=== PATIENT | female | born 1960 | race Caucasian/White ===

== ENCOUNTER 2019-08-30 10:02 | Observation (INO) ==
--- NOTE | 2019-08-30 10:30 | PROVIDER DOCUMENTATION ---
HPI-Neurological Disorder - General Chief Complaint: Stroke-Like Symptoms Stated Complaint: RIGHT SIDE FACIAL NUMBNESS Time Seen by Provider: 08/30/19 10:08 Source: patient, family Allergies/Adverse Reactions: Patient Allergies Allergy/AdvReac Type Severity Reaction Status Date / Time meperidine HCl * Allergy Intermediate PALPATIONS Verified 03/08/16 04:46 [From Demerol] cephalexin monohydrate * Allergy Mild SICK Verified 03/08/16 04:46 [From Keflex] Sulfa (Sulfonamide Allergy Mild SICK Verified 03/08/16 04:46 Antibiotics) ciprofloxacin AdvReac Mild NAUSEA Verified 03/08/16 09:12 hydrocodone AdvReac Mild NAUSEA Verified 03/08/16 04:46 Home Medications: Home Medication List Medication Instructions Recorded Confirmed Last Taken Type Alprazolam [Xanax] 1 mg PO TID 07/27/13 05/27/19 05/27/19 History Citalopram [Celexa] 60 mg PO QPM 07/27/13 05/27/19 05/27/19 History Diltiazem C.d. [Cardizem Cd] 240 mg PO 1500 07/27/13 05/27/19 05/27/19 History Omeprazole [Prilosec] 40 mg PO QAM 07/27/13 05/27/19 05/27/19 History L.acidoph,Paracasei, B.lactis 1 ea PO DAILY 05/27/19 05/27/19 05/27/19 History [Probiotic] - History of Present Illness-Neuro Nature of Presenting Problem: 59 YOF WITH PMH OF HTN, ANXIETY PRESENTS WITH C/O FACIAL DROOP, SLURRED SPEECH AND R SIDE NUMBNESS THAT WAS NOTED ON WAKING THIS AM AT 0830 (APROX). SHE REPORTS ONE WEEK AGO SHE HAS HAD NUMBNESS IN HER R LEG BUT ATTRIBUTED IT TO "STEPPING ON A CORD". SHE DENIES CP, SOB, HEAD INJURY, FALL, N/V/D. REPORTS SHE DOES NOT FEEL WELL IN GENERAL. Severity: reports: moderate Onset/Duration: reports: other (NOTED SLURRED SPEECH R FACIAL DROOP AND WEAKNESS UPON WAKING THIS AM. REPORTS R LEG HAS BEEN "NUMB" FOR A WEEK) Timing: reports: still present Context: reports: impaired speech, paresthesia, facial droop Character of Altered Mental Status: reports: N/A Any recent trauma/injury?: reports: none Character of Deficits: reports: new weakness, altered sensation, impaired speech New weakness or altered sensation location:: reports: RUE, RLE, right facial Cognitive Baseline: alert, oriented x3 Gait Baseline: uses a cane Associated Symptoms: reports: slurred speech Similar Symptoms Previously?: No Recently seen or treated by another doctor?: No Review of Systems - Adult - REVIEW OF SYSTEMS - ADULT Constitutional: reports: no symptoms reported. denies: see HPI, chills, fever, fatique, night sweats, weight gain, weight loss, other Eyes: reports: no symptoms reported. denies: see HPI, discharge, dry eyes, decreased vision, blurred vision, double vision, eye pain, redness, other Ears, Nose, Mouth & Throat: reports: no symptoms reported. denies: see HPI, ear discharge, ear pain, hearing loss, tinnitus, epistaxis, sinus problem, nose pain, loose teeth, mouth/dental pain, mouth swelling, hoarseness, throat pain, throat swelling, other Cardiovascular: reports: no symptoms reported. denies: see HPI, chest pain, edema, heart murmur, irregular heart rate, orthopnea, palpitations, poor circulation, PND, syncope, other Respiratory: reports: no symptoms reported. denies: see HPI, chronic cough, cough, dyspnea on exertion, excessive sputum production, hemoptysis, pleurisy, shortness of breath, wheezing, other Gastrointestinal: reports: no symptoms reported. denies: see HPI, abdominal pain, hematemesis, constipation, diarrhea, difficulty swallowing, frequent heartburn, nausea, poor appetite, rectal bleeding, vomiting, other Genitourinary: reports: no symptoms reported. denies: see HPI, dysuria, discharge, frequency, flank pain, frequent UTI's, hematuria, hesitency, incontinence, urinary retention, urgency, other Musculoskeletal: reports: see HPI. denies: no symptoms reported, bone pain, back pain, frequent leg cramps, joint pain, joint swelling, muscle aches, muscle weakness, neck pain, other Integumentary: reports: no symptoms reported. denies: see HPI, hives, hair loss, itching, mole changes, nail changes, rash, skin sores/ulcer, skin thickening, other Neurological: reports: see HPI, numbness, paresthesia, slurred speech, other (FACIAL DROOP). denies: no symptoms reported, ataxia, dizziness/vertigo, headache/migraines, loss of balance, seizure, syncope, tremors Psychiatric: reports: no symptoms reported. denies: see HPI, anxiety, anti- depressant use, alcohol/drug dependence, depression, emotional problems, insomnia, panic attacks, suicidal thoughts, other Endocrine: reports: no symptoms reported. denies: see HPI, change in skin pigment, excessive sweating, goiter, cold intolerance, heat intolerance, increased hunger, increased thirst, polyuria, other Hematologic/Lymphatic: reports: no symptoms reported. denies: see HPI, blood clots, easy bruising, low blood count, lymphedema, prolonged bleeding, swollen lymph nodes, transfusions, other Allergic/Immunologic: reports: no symptoms reported. denies: see HPI, allergic reactions, allergic rhinitis, asthma, eczema, food allergy, frequent infections, hay fever, hives, positive PPD, urticaria, other Past History - Adult - PAST MEDICAL HISTORY-ADULT Review of Records: reports: Nursing Assessment Review, Social history reviewed & non-contributory. Major Childhood Illnesses: reports: denies history Cardiovascular: reports: HTN Respiratory: reports: denies history Gastrointestinal: reports: GERD Obstetrical/Gynecological: reports: denies history Genitourinary: reports: denies history Musculoskeletal: reports: denies history Neurological: reports: denies history Endocrine/Immune: reports: denies history Other Conditions: reports: denies history - PRIOR SURGERIES/PROCEDURES Surgical/Procedure History: reports: cholecystectomy, hysterectomy - IMMUNIZATION STATUS Childhood Immunizations: See Nurse Assessment Flu Vaccine: See Nurse Assessment - FAMILY HISTORY Family History: reviewed, not pertinent Physical Exam- Neurological - Physical Exam-Neuro Initial Vital Signs Reviewed: Yes General Appearance: alert, no apparent distress Eye Exam: bilateral eye: normal inspection, PERRL, EOMI HENMT: normocephalic/atraumatic, moist mucous membranes, normal ENT inspection Head Injury: no evidence of injury Neck: non-tender, full range of motion, supple Respiratory: chest non-tender, lungs clear, normal breath sounds, no accessory muscle use Cardiovascular: normal peripheral pulses, regular rate, rhythm, no edema, no ga llop, no JVD, no murmur Abdominal Exam: normal bowel sounds, non tender, soft Lymphatic: no adenopathy Peripheral Pulses: radial (R): 2+, radial (L): 2+ Extremity: normal range of motion, non-tender. 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 negative: abnormal eye position, abnormal pupil position, tongue deviation to R, tongue deviation to L Coordination/Gait: normal finger to nose Motor/Sensory: no motor deficit (MOVES ALL EXT WELL), weak motor strength RUE, weak motor strength RLE Neurologic: facial droop, focal weakness (R SIDE). negative: aphasia Integumentary: normal color, normal turgor, warm/dry Psych/Mental Status: normal mood/affect, oriented x 3 - Glascow Coma Scale Best Eye Response: (4) open spontaneously Best Verbal Response: (5) oriented Best Motor Response: (6) obeys commands Progress - PLAN OF CARE/RESULTS Progress/Plan/Lab Results: Vital Signs - 8 hr 08/30/19 10:05 08/30/19 10:20 08/30/19 10:56 Temperature 98.1 F Pulse Rate 79 73 60 Respiratory Rate 18 21 18 Blood Pressure 218/112 151/82 137/89 O2 Sat by Pulse Oximetry 95 97 95 08/30/19 11:15 Temperature Pulse Rate 59 L Respiratory Rate 17 Blood Pressure 139/89 O2 Sat by Pulse Oximetry 94 L Laboratory Results - last 24 hr 08/30/19 08/30/19 08/30/19 10:27 10:27 10:27 WBC 5.30 RBC 4.90 Hgb 12.9 Hct 41.4 MCV 84.5 MCH 26.3 L MCHC 31.2 L RDW Std Deviation 16.6 H Plt Count 222 MPV 10.2 Immature Gran % (Auto) 0.0 Neut % (Auto) 46.4 Lymph % (Auto) 41.7 [place] % (Auto) 9.2 Eos % (Auto) 2.1 Baso % (Auto) 0.6 Immature Gran # (Auto) 0.00 Neut # (Auto) 2.46 Lymph # (Auto) 2.21 [place] # (Auto) 0.49 Eos # (Auto) 0.11 Baso # (Auto) 0.03 PT INR PTT (Actin FS) Sodium 140 Potassium 4.3 Chloride 105 Carbon Dioxide 22 L Anion Gap 13 BUN 14 Creatinine 0.7 Estimated GFR/1.73 m2 > 60 BUN/Creatinine Ratio 20 Glucose 93 POC Glucose Calculated Osmolality 280 Calcium 9.6 Total Bilirubin 0.40 AST 48 H ALT 42 H Alkaline Phosphatase 85 Troponin T < 0.010 Total Protein 7.6 Albumin 4.8 Globulin 3.0 Albumin/Globulin Ratio 2.0 TSH Free T4 08/30/19 08/30/19 08/30/19 10:27 10:27 10:29 WBC RBC Hgb Hct MCV MCH MCHC RDW Std Deviation Plt Count MPV Immature Gran % (Auto) Neut % (Auto) Lymph % (Auto) [place] % (Auto) Eos % (Auto) Baso % (Auto) Immature Gran # (Auto) Neut # (Auto) Lymph # (Auto) [place] # (Auto) Eos # (Auto) Baso # (Auto) PT 12.4 INR 0.88 PTT (Actin FS) 35.4 Sodium Potassium Chloride Carbon Dioxide Anion Gap BUN Creatinine Estimated GFR/1.73 m2 BUN/Creatinine Ratio Glucose POC Glucose 85 Calculated Osmolality Calcium Total Bilirubin AST ALT Alkaline Phosphatase Troponin T Total Protein Albumin Globulin Albumin/Globulin Ratio TSH 2.31 Free T4 1.20 Orders Category Date Time Status Cardiac Monitoring DIRECTED Care 08/30/19 10:09 Active Finger Stick Blood Sugar (ED) DIRECTED Care 08/30/19 10:09 Active Oxygen Therapy- ED Nursing DIRECTED Care 08/30/19 10:09 Active Saline Loc NOW Care 08/30/19 10:09 Active CHEST-PORTABLE [RAD] Stat Exams 08/30/19 10:[address] HEAD W/O CONTRAST [CT] Stat Exams 08/30/19 10:08 Completed CBC WITH ELECTRONIC DIFF [HEME] Stat Lab 08/30/19 10:27 Completed COMPREHENSIVE METABOLIC PANEL [CHEM] Stat Lab 08/30/19 10:27 Completed FREE T4 Stat Lab 08/30/19 10:27 Completed PROTIME WITH INR [COAG] Stat Lab 08/30/19 10:27 Completed PTT [COAG] Stat Lab 08/30/19 10:27 Completed TROPONIN T Stat Lab 08/30/19 10:27 Completed TSH Stat Lab 08/30/19 10:27 Completed URINALYSIS W/POSS RFLX CULT [URINALYSIS] Stat Lab 08/30/19 10:33 Ordered URINE DRUG SCREEN PL Stat Lab 08/30/19 10:33 Ordered EKG [EKG] Stat Ther 08/30/19 10:09 Ordered D/W DR DURÁN DUE TO LAST KNOWN NORMAL 0230, AND SYMPTOMS UPON WAKING THE PATIENT IS NOT A TPA CANIDATE AND SHOULD BE ADMITTED HERE FOR WORKUP Result Diagrams: 08/30/19 10:27 08/30/19 10:27 - EKG 1 Time of EKG reading by physician:: 10:33 EKG Read and Signed by:: Familia Durán EKG Interpretation (*Must complete 3 of following elements*): Normal Rate: 66 Rhythm: NSR [place]: normal QRS: normal AR Interval: normal ST Wave: normal Prior EKG Comparison: unchanged from prior - XRAY 1 XRAY Study: Chest Impression: See EMR Report (EXAM: CHEST-PORTABLE HISTORY: stroke symtoms TECHNIQUE: Single view COMPARISON: 03/18/2016 FINDINGS: The lungs are well expanded. The heart is not enlarged. The vessels are not distended. There are no infiltrates. No effusion identified. IMPRESSION: Negative exam. W Electronically signed by Lance Mejia 08/30/2019 11:18 AM 08/30/19 1118 I nterpreting Physician: Lance Mejia MD Dictated Date/Time: 08/30/19 1118 cc: Rosemary Sotomayor; Francis Witt MD) - CT/MRI 1 CT Study: Head Impression: See EMR Report (EXAM: CT HEAD W/O CONTRAST HISTORY: R sided weakness TECHNIQUE: CT head without contrast COMPARISON: 03/16/2015 FINDINGS: No parenchymal hemorrhage. No epidural or subdural hematoma. No subarachnoid hemorrhage. No mass identified on this noncontrasted exam. No hydrocephalus. No sinus opacification. IMPRESSION: No hemorrhage. Negative brain CT without contrast. This exam was performed using automated exposure control, adjustment of mA or kV according to patient size, and/or use of iterative reconstruction technique. Electronically signed by Lance Mejia 08/30/2019 11:09 AM 08/30/19 1109 Interpreting Physician: Lance Mejia MD Dictated Date/Time: 08/30/19 1106 cc: Rosemary Sotomayor; Francis Witt MD) - CONSULTS/PCP/HOSPITALIST Notification #1 *Consult/PCP/Hospitalist*: DR. CASH Time Discussed: 11:37 Consult Disposition: Admit Departure - Departure Date of Disposition Decision: 08/30/19 Time of Disposition Decision: 11:37 DIAGNOSIS: CVA (cerebral vascular accident), HTN (hypertension) Disposition: ADMITTED INPATIENT 09 Certified Medical Emergency: Emergent Condition: Fair Referrals and Follow-Ups: Francis Witt MD [Primary Care Provider] - - Critical Care Note This patient required my direct & personal management of CC.: No Attestation - Physician/ MARIANNE Attestation Patient care was provided by Advanced Practice Provider:: Yes Advanced Practice Provider:: Rosemary Sotomayor Advanced Practice Provider documentation review:: The Mid-level provider documentation, treatment plan and medical decision making was reviewed by the physician who agrees with all treatment and medical decision making by the MLP. The physician spent face to face time with patient:: No Advanced Practice Provider documentation review:: Supervising physician onsite and consulted in the evaluation and care of this patient. The physician did not have a face to face encounter with the patient. - NIH Stroke Scale NIH Type: Initial Evaluation Level of Consciousness: 0-Alert LOC Questions (ask month and age): 0-Answers Both Correctly LOC Commands (ask to open & close eyes;make a fist, let go): 0-Obeys Both Correctly Best Gaze (horizontal eye movement): 0-Normal Visual (use finger movement, counting or visual threat): 0-No Visual Loss Facial Palsy (show teeth or raise eyebrows & close eyes tght: 1-Minor Paralysis Motor Function-left arm: 0-Normal Motor Function-right arm: 1-Drift Motor Function-left le-Normal Motor Function-right le-Normal Limb Ataxia(duzaah-cfux-pffakl, or heel to mora): 0-No Ataxia Sensory(pin prick to face,arms,trunk,legs-compare side/side): 0-No Ataxia Best Language(name item/read sentence.Ex-Down to Earth): 0-No Aphasia Dysarthria(Pt read words or say words Ex.Mama,Tip-Top,Thanks: 1-Mild-Mod Slurring Words Extinction and Inattention: 0-Normal NIH Total Score: 3 Stroke tPA Guidelines - Inclusion Criteria for IV tPA 18 years old or older: Yes Ischemic stroke with measurable deficit: Yes Onset <3 hours ago *OR* 3-4.5 hours ago: Unable to Obtain (LAST KNOWN NORMAL WAS 0230, SYMPTOMS NOTED ON WAKING 0830) - Exclusion Criteria for IV tPA Evidence of intracranial hemorrhage on CT: No Presentation suggest SAH: No CT reveals defined area of hypodensity: No Evidence of AVM, neoplasm, aneurysm: No Seizure at stroke onset: No Active internal bleeding or acute trauma: No Platelet Count Less Than 100,000: No Heparin Within Last 48 HRS (PTT >Lab normal limits): No INR > 1.7 (warfarin use): No Use IIB/IIIA inhibitors within 24 hours: No Serious Head Trauma Within Last 3 Months: No Arterial Puncture Within Last 7 Days: No Lumbar Puncture Within Last 7 Days: No Repeated systolic Blood Pressure >185 or Diastolic >110: Yes - Additional Exclusion Criteria for IV tPA Currently on Coumadin: No Patient older than 80: No Prior stroke and diabetes: No Baseline NIHSS score > 25: No
[2019-08-30 10:37] LABS: BASO# 0.03 X1000 (0.0-0.2); BASO% 0.6 % (0.0-0.8); EOS# 0.11 X1000 (0.0-0.7); EOS% 2.1 % (0.0-10.0); HEMATOCRIT 41.4 % (37.0-47.0); HEMOGLOBIN 12.9 g/dL (12.0-16.0); LYMPH# 2.21 X1000 (1.2-3.4); LYMPH% 41.7 % (20.5-51.1); MCH 26.3 PG (27-31); MCHC 31.2 g/dL (33-37); MCV 84.5 FL (81-99); MONO# 0.49 X1000 (0.11-0.59); MONO% 9.2 % (1.7-9.3); MPV 10.2 FL (7.4-10.4); NEUT# 2.46 X1000 (1.4-6.5); NEUT% 46.4 % (42.2-75.2); PLT 222 X1000 (130-400); RDW 16.6 % (11.5-14.5)
[2019-08-30 10:50] LABS: AGAP 13; ALBUMIN 4.8 g/dL (3.5-5.0); ALKALINE PHOSPHATASE 85 U/L (32-104); BUN 14 mg/dL (8-22); CALCIUM 9.6 mg/dL (8.8-10.2); CHLORIDE 105 mmol/L (98-107); COSMO 280; CREATININE 0.7 mg/dL (0.5-0.9); ESTIMATED GFR > 60; GLUCOSE 93 mg/dL (70-104); GOT 48 U/L (10-30); GPT 42 U/L (10-36); POTASSIUM 4.3 mmol/L (3.5-5.1); SODIUM 140 mmol/L (136-145); TCO2 22 mmol/L (25-35); TOTAL PROTEIN 7.6 g/dL (6.3-8.3)
[2019-08-30 10:56] LABS: INR 0.88; PROTIME 12.4 Seconds (11.0-16.0)
[2019-08-30 10:57] LABS: PTT 35.4 Seconds (22.3-41.8)
--- NOTE | 2019-08-30 11:12 | Diag Imaging Result Doc PS360 ---
EXAM: CT HEAD W/O CONTRAST HISTORY: R sided weakness TECHNIQUE: CT head without contrast COMPARISON: 03/16/2015 FINDINGS: No parenchymal hemorrhage. No epidural or subdural hematoma. No subarachnoid hemorrhage. No mass identified on this noncontrasted exam. No hydrocephalus. No sinus opacification. IMPRESSION: No hemorrhage. Negative brain CT without contrast. This exam was performed using automated exposure control, adjustment of mA or kV according to patient size, and/or use of iterative reconstruction technique. Electronically signed by Lance Mejia 08/30/2019 11:09 AM
--- NOTE | 2019-08-30 11:21 | Diag Imaging Result Doc PS360 ---
EXAM: CHEST-PORTABLE HISTORY: stroke symtoms TECHNIQUE: Single view COMPARISON: 03/18/2016 FINDINGS: The lungs are well expanded. The heart is not enlarged. The vessels are not distended. There are no infiltrates. No effusion identified. IMPRESSION: Negative exam. W Electronically signed by Lance Mejia 08/30/2019 11:18 AM
[2019-08-30 11:25] LABS: FREE T4 1.2 ng/dL (0.93-1.70); TSH 2.31 uIUmL (0.27-4.20)
--- NOTE | 2019-08-30 11:40 | EKG Report ---
Test Performed on : 08/30/2019 10:33:12 AM Test Reason : stroke symptoms Blood Pressure : / mmHG Vent. Rate : 066 BPM Atrial Rate : 066 BPM P-R Int : 142 ms QRS Dur : 082 ms QT Int : 410 ms P-R-T Axes : 025 -08 019 degrees QTc Int : 429 ms Normal sinus rhythm. Normal ECG When compared with ECG of 18-MAR-2016 12:32, No significant change was found Unconfirmed Result
[2019-08-30 12:03] LABS: URINE SOURCE CLEAN CATCH
[2019-08-30 12:04] LABS: BILIRUBIN URINE NEGATIVE (NEGATIVE); BLOOD URINE TRACE (NEGATIVE); COLOR YELLOW; GLUCOSE URINE NEGATIVE (NEGATIVE); KETONE URINE NEGATIVE (NEGATIVE); LEUKOCYTES URINE TRACE (NEGATIVE); NITRITE URINE NEGATIVE (NEGATIVE); PROTEIN URINE NEGATIVE (NEGATIVE); SP GRAVITY URINE 1.017; TURBIDITY URINE CLEAR (CLEAR); UROBILINOGEN URINE NORMAL (NORMAL)
[2019-08-30 12:06] LABS: UR EPITHELIAL CELLS <10 /HPF (<10); URINE BACTERIA NEGATIVE /HPF; URINE RBC <10 /HPF (<10); URINE WBC <10 /HPF (<10)
[2019-08-30 12:12] LABS: UR AMPHETAMINES QUAL NONE DETECTED (NONE DETECT); UR BARBITUATES QUAL NONE DETECTED (NONE DETECT); UR BENZODIAZEPIN QUAL PRESUMPTIVE POSITIVE (NONE DETECT); UR CANNABINOIDS QUAL NONE DETECTED (NONE DETECT); UR COCAINE QUAL NONE DETECTED (NONE DETECT); UR METHADONE QUAL NONE DETECTED (NONE DETECT); UR METHAMPHETAMINE QUAL NONE DETECTED (NONE DETECT); UR OPIATES QUAL NONE DETECTED (NONE DETECT); UR OXYCODONE QUAL NONE DETECTED (NONE DETECT); UR PCP QUAL NONE DETECTED (NONE DETECT); UR PROPOXYPHENE QUAL NONE DETECTED (NONE DETECT); UR TCA QUAL NONE DETECTED (NONE DETECT)
[2019-08-30] MEDS ORDERED: ZOFRAN IV PRN (12:34)
--- NOTE | 2019-08-30 13:26 | Diag Imaging Result Doc PS360 ---
EXAM: CT ANGIOGRAM HEAD/NECK HISTORY: stroke TECHNIQUE: 1. CT angiogram neck with intravenous contrast. MIP images obtained. 2. CT angiogram head with intravenous contrast. MIP images obtained. COMPARISON: Noncontrasted study performed earlier FINDINGS: Neck: Normal right common carotid artery. Normal left common carotid artery. Normal right internal carotid artery. Normal left internal carotid artery. Normal right vertebral artery. The left vertebral artery is small. This is a normal variant. Head: Normal anterior cerebral arteries. Normal middle cerebral arteries. Normal basilar artery. Normal posterior cerebral arteries. No occlusion or stenosis identified. No aneurysm. IMPRESSION: Neck: Normal exam Head: No abnormality identified. This exam was performed using automated exposure control, adjustment of mA or kV according to patient size, and/or use of iterative reconstruction technique. Electronically signed by Lance Mejia 08/30/2019 1:23 PM
[2019-08-30] MEDS: PRILOSEC PO SCH (13:36)
[2019-08-30] MEDS: LOVENOX SUBQ SCH (13:36)
[2019-08-30] MEDS: XANAX PO SCH ×2 (14:56→21:11)
[2019-08-30] MEDS ORDERED: CARDIZEM CD PO SCH (15:00)
[2019-08-30] MEDS: TYLENOL PO PRN (15:38)
[2019-08-30] MEDS: CARDIZEM CD PO SCH (18:32)
--- NOTE | 2019-08-30 20:41 | HISTORY AND PHYSICAL ---
PRIMARY CARE PROVIDER: Dr. Francis Witt. CHIEF COMPLAINT: Right-sided weakness, numbness. HISTORY OF PRESENT ILLNESS: Lucy Jaeger is a 59-year-old female with a medical history of morbid obesity, fibromyalgia, rheumatoid arthritis, chronic right lower extremity weakness (uses a cane for ambulation). Also has a history of a DVT on the right. States that approximately 1 week ago she was vacuuming. She had stepped on the cord to the vacuum and jerked it out from underneath her foot. She started having ascending numbness that went up to the hip, but then throughout the week, it continued to climb, and now she is having numbness and tingling all the way up through the midline of the scalp and the right face. She states that she woke up this morning and felt like the right side of her face was swelling, had a droop, slurred speech, and some thought process loss. So, she presented to the emergency department here at [facility], where she was evaluated. She does have right-sided weakness on the upper and the lower extremity. The initial head CT was negative for any acute findings. She will have a CTA of the brain to evaluate if there are any signs of stroke. If not, the next intervention or evaluation will be her spine. PAST MEDICAL HISTORY: 1. Fibromyalgia. 2. Hypertension. 3. GERD. 4. Right lower extremity DVT. 5. Rheumatoid arthritis. 6. Anxiety. Over the last 2 months, her mother had . 7. Chronic right lower extremity weakness secondary to right foot surgery in 2013. Uses a cane for ambulation. SURGICAL HISTORY: 1. Right foot surgery 2013. 2. Laparoscopic cholecystectomy. 3. Hysterectomy. 4. Anterior cervical fusion. SOCIAL HISTORY: Denies tobacco, alcohol or illicit drug use. No kids. Lives with her . 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 She has been on disability since her right foot surgery. FAMILY HISTORY: Mother had lymphoma and leukemia, 6 months ago. Father had Alzheimer's. ALLERGIES: 1. Pain medication. She has intolerance to hydrocodone and Demerol. She states she can take Demerol if she takes Benadryl with it. 2. Keflex. 3. Sulfa drugs. 4. Cipro. HOME MEDICATIONS: 1. Tylenol p.m. 1000 mg p.o. nightly. 2. Cardizem 240 mg p.o. nightly. 3. Celexa 60 mg p.o. nightly. 4. Omeprazole 40 mg p.o. daily. 5. Probiotic once daily. 6. Xanax 1 mg p.o. t.i.d. REVIEW OF SYSTEMS: Fourteen-point review of systems was completed, and all were negative for those mentioned above in the HPI. PHYSICAL EXAMINATION: VITAL SIGNS: Temperature 97.6 degrees, heart rate 60, respiratory rate 16, blood pressure 137/68, O2 saturation 98% on room air. She is 5 feet 4 inches tall; weight is 227 pounds with a BMI of 39. GENERAL: Ms. Lucy Jaeger is a 59-year-old female. She is in no acute distress. She is able answer questions appropriately. HEENT: Atraumatic, normocephalic. Pupils equal, round, reactive to light. Extraocular movements intact. Mucous membranes are moist. She has a bit of a tremor with her tongue. It is midline. NECK: Trachea midline. CARDIOVASCULAR: S1, S2. Regular rate and rhythm. No rubs, gallops, murmurs. Trace lower extremity edema, +2 dorsalis and radial pulses. Negative JVD or carotid bruits. PULMONARY: Clear to auscultation. Bilateral breath sounds. No accessory muscle use or work of breathing noted. ABDOMEN: Soft, nontender, nondistended. Positive bowel sounds x4. EXTREMITIES: Moves all extremities equally, but has 4/5 strength at the right upper and lower extremity. Left upper and lower extremity is 5/5. NEUROLOGIC: A and O x3. Follows commands. Decreased sensory essentially throughout the right side of her body from scalp all the way to the foot. SKIN: Warm, dry and intact. LABORATORY DATA: White blood cells 5000, hemoglobin 12, hematocrit 41, platelet count 222. INR 0.8, PTT 35.4. Sodium 140, potassium 4.3, BUN 14, creatinine 0.7, glucose 93, calcium 9.6. Bilirubin 0.40, AST 48, ALT 42. Troponin less than 0.01. Albumin is 4.8. TSH 2.31, free T4 is 1.20. Urinalysis: Trace blood, trace leukocytes, otherwise negative. Urine drug screen positive for benzodiazepines. IMAGING: Initial head CT: No hemorrhage. Negative for any acute findings. Chest x-ray: Negative exam. EKG normal sinus rhythm, rate 66, QTc is 429. ASSESSMENT AND PLAN: 1. Stroke-like symptoms with right hemiparesis and decreased sensation. Symptoms have been going on and progressively getting worse since 1 week ago. She is going to go for a head CTA to evaluate if there has been a stroke involved. If not, this may be spine, and we will need to get imaging of her spine. 2. History of right deep venous thrombosis. 3. Fibromyalgia. Continue Tylenol. 4. Hypertension. We can allow for permissive hypertension and hold any antihypertensives. 5. GERD. Continue with proton pump inhibitor. 6. Anxiety. Continue with Xanax. 7. Right lower extremity chronic weakness. Uses a cane at home. We will get physical therapy to evaluate. 8. Deep venous thrombosis prophylaxis. Lovenox. Dictated by MARISELA Schaefer for Malik Dukes MD Addendum: Patient seen and examined by myself. Agree with MARISELA note. It reflects my assessment and plan. Patient is being admitted to hospital for stroke like symptoms. Workup in progress that include echocardiogram, CTA of head and neck and MRI of brain as well. Will monitor patient closely. cc: MARISELA Schaefer MD [facility]
[2019-08-30] MEDS: CELEXA PO SCH (21:11)
[2019-08-31 06:10] LABS: BASO# 0.04 X1000 (0.0-0.2); BASO% 0.8 % (0.0-0.8); EOS# 0.09 X1000 (0.0-0.7); EOS% 1.9 % (0.0-10.0); HEMATOCRIT 38.1 % (37.0-47.0); HEMOGLOBIN 11.6 g/dL (12.0-16.0); IMM GRAN# 0.01 X1000 (0.0-0.04); IMM GRAN% 0.2 % (0.0-0.5); LYMPH# 1.98 X1000 (1.2-3.4); LYMPH% 41.3 % (20.5-51.1); MCH 26.1 PG (27-31); MCHC 30.4 g/dL (33-37); MCV 85.6 FL (81-99); MONO# 0.49 X1000 (0.11-0.59); MONO% 10.2 % (1.7-9.3); NEUT# 2.18 X1000 (1.4-6.5); NEUT% 45.6 % (42.2-75.2); PLT 218 X1000 (130-400); RBC 4.45 XMIL (4.2-5.4); RDW 16.5 % (11.5-14.5); WBC 4.79 X1000 (4.8-10.8)
[2019-08-31 06:14] LABS: INR 0.95; PROTIME 13.1 Seconds (11.0-16.0)
[2019-08-31 06:21] LABS: AGAP 11; ALBUMIN 4.2 g/dL (3.5-5.0); ALKALINE PHOSPHATASE 74 U/L (32-104); BUN 13 mg/dL (8-22); CHLORIDE 106 mmol/L (98-107); COSMO 280; CREATININE 0.7 mg/dL (0.5-0.9); ESTIMATED GFR > 60; GLUCOSE 103 mg/dL (70-104); GOT 36 U/L (10-30); GPT 34 U/L (10-36); POTASSIUM 4.3 mmol/L (3.5-5.1); SODIUM 140 mmol/L (136-145); TCO2 23 mmol/L (25-35); TOTAL PROTEIN 6.6 g/dL (6.3-8.3)
[2019-08-31 06:41] LABS: LYMPHS 46 % (21-51); MONO 4 % (1-9); SEGS 46 % (42-75)
[2019-08-31] MEDS: PRILOSEC PO SCH (06:42)
[2019-08-31 06:43] LABS: HYPOCHROM 1+
[2019-08-31 06:44] LABS: POIKILOCYTOSIS OCCASIONAL; TARGET CELLS OCCASIONAL
[2019-08-31] MEDS: CULTURELLE PO SCH (08:10)
[2019-08-31] MEDS: XANAX PO SCH ×3 (08:11→20:06)
[2019-08-31] MEDS ORDERED: ASPIRIN PO SCH (09:00)
--- NOTE | 2019-08-31 10:10 | ECHO REPORT ---
ORDER DATE: 08/30/2019 MEASUREMENTS: Septal thickness 0.7, left ventricular internal diameter in diastole 4.5, posterior wall thickness 0.8, aortic root 2.8, left atrium 4.7. SUMMARY: 1. Fair quality study. 2. The aortic valve is trileaflet and opens normally on 2-dimensional images. The peak gradient across the aortic valve is less than 10 mmHg. Mitral, tricuspid, and pulmonic valves are without evidence of structural abnormality, with trace mitral regurgitation, trace tricuspid regurgitation, and mild pulmonic insufficiency. The estimated systolic PA pressure by Doppler is 40 mmHg, suggesting mild pulmonary hypertension. The aortic root is normal in size. 3. Normal left ventricular dimensions demonstrated. The estimated left ventricular ejection fraction is approximately 55% to 60%. No regional wall motion abnormalities are evident. [id number] left atrial enlargement is demonstrated. The right atrium and right ventricle are grossly normal in size with grossly preserved right ventricular systolic function. 4. No pericardial effusion. 5. Appearance of inferior vena cava suggests normal central venous pressure. cc: MD Malik Whatley MD
--- NOTE | 2019-08-31 10:45 | PROGRESS NOTE ---
DATE: 08/31/2019 SUBJECTIVE: The patient seems to be feeling much better today. She is still having some right upper and lower extremity weakness, but it is mild. Also, she has some mild weakness at the level of the right face and probably some numbness as well, but sensation is intact. She is able to move all 4 extremities. Her speech is normal. Pending MRI tomorrow. OBJECTIVE: Vital Signs: Temperature 98 degrees, pulse 66, respiratory rate 20, blood pressure 135/70, oxygen saturation 95% on room air. HEENT: Head normocephalic, no trauma. PERRLA. Neck: Supple. No JVD. No masses. Central trachea. Chest: Clear to auscultation. No wheezing. No rales. Cardiovascular: Regular rate and rhythm. No murmurs, no gallops, no rubs. Abdomen: Soft, nontender, nondistended. No hepatosplenomegaly. Extremities: No edema, no clubbing, no cyanosis. Neurological: The patient is alert. She is oriented x3. She does have mild right- sided weakness but sensation is intact. As per the patient, she is much better. She follows commands. LABORATORY DATA: WBC 4.7, hemoglobin 11.6, hematocrit 38.1, platelets 218,000. Sodium 140, potassium 4.3, chloride 106, bicarbonate 23, BUN 13, creatinine 0.7, glucose 103, calcium 9. AST 36, ALT 34, alkaline phosphatase 74. ASSESSMENT AND PLAN: 1. Stroke-like symptoms with right-sided weakness and decreased sensation. This is much better. Echocardiogram did not show any clots, and actually her ejection fraction is normal. She does have some pulmonary hypertension, though. Also, she had a CTA of the head and neck, and they were normal. Pending MRI tomorrow. 2. History of right deep venous thrombosis. Aware. 3. Fibromyalgia. Continue with Tylenol. 4. Hypertension. Continue with home medications. 5. Gastroesophageal reflux disease. Continue proton pump inhibitors. 6. Anxiety with Xanax. 7. Right lower extremity chronic weakness. She uses a cane. Apparently, the weakness is because of a previous surgery that she had on her right foot before. 8. Deep venous thrombosis prophylaxis with Lovenox. As per the patient, she does not tolerate aspirin, and she was told that she cannot take it because of previous GI bleed. I will put this patient on Plavix instead and monitor. Pending MRI tomorrow. cc: Ike Lopez MD
[2019-08-31] MEDS: PLAVIX PO SCH (11:08)
[2019-08-31] MEDS: LOVENOX SUBQ SCH (13:29)
[2019-08-31] MEDS: CARDIZEM CD PO SCH (18:12)
[2019-08-31] MEDS: CELEXA PO SCH (20:06)
[2019-09-01] MEDS: TYLENOL PO PRN ×2 (03:38→09:52)
[2019-09-01] MEDS: PRILOSEC PO SCH (06:01)
[2019-09-01] MEDS: PLAVIX PO SCH (09:48)
[2019-09-01] MEDS: XANAX PO SCH (09:48)
[2019-09-01] MEDS: CULTURELLE PO SCH (09:48)
--- NOTE | 2019-09-01 11:28 | Diag Imaging Result Doc PS360 ---
EXAM: MRI BRAIN W/WO CONTRAST - 09/01/2019 HISTORY: stroke TECHNIQUE: MRI brain without and with contrast. Images are obtained prior to and following gadolinium ministration. COMPARISON: 08/30/2019 CT head without contrast, 01/08/2018 MRI brain without and with contrast FINDINGS: The diffusion weighted images show no areas of restricted diffusion (no evidence of acute infarct). There is no evidence of intracranial hemorrhage, mass effect, midline shift, or hydrocephalus. There are no substantial signal abnormalities identified. There is no abnormal enhancement identified. IMPRESSION: No visible intracranial abnormality. Electronically signed by Ghanshyam Lockett 09/01/2019 11:26 AM
[2019-09-01 11:53] VITALS: BP 129/62
--- NOTE | 2019-09-02 09:34 | DISCHARGE SUMMARY ---
ADMISSION DATE: 08/30/2019 DISCHARGE DATE: 09/01/2019 ADDENDUM: The patient still has a little bit of numbness in her face and arm, very atypical and her workup has been completely negative. She has a nonfocal exam. CTA was negative. Echo was unremarkable. EF 55% to 60%. Her MRI was negative not even any old strokes. I am not even entirely sure this is truly a TIA, but she did have dysarthria. She reports she lost her mother about 6 months ago. Mrs. Sulma Rowell and she has been under a lot of stress and kind of worsened over the last week or so nearing the Ry[place] holiday. In any case. She has a nonfocal exam. Negative workup. We are going to discharge her on Plavix until she can be re-evaluated by Dr. Witt who is her PCP. Return for any worsening acute neurological deficit. This is a face- to-face encounter note with Jennifer Rain. cc: Kirby Padron MD
--- NOTE | 2019-09-02 09:44 | DISCHARGE SUMMARY ---
ADMISSION DATE: 08/30/2019 DISCHARGE DATE: 09/01/2019 CONSULTATIONS: None. PERTINENT PROCEDURES: 1. Head CT negative. 2. Head and neck CT normal. No abnormalities identified. 3. Echocardiogram EF of 55 to 60 percent, PA pressures of 40 mmHg suggesting mild pulmonary hypertension. 4. Brain MRI: No visible intracranial abnormality. DISCHARGE DIAGNOSES: 1. Questionable transient ischemic attack. The patient did report some dysarthria. She does have atypical symptoms. She does report some recent stressors with the loss of her mother as well as the holidays. Her workup has been completely negative. She has been placed on Plavix as she reports an allergy to aspirin that causes a gastrointestinal bleed. We will have her follow up with Dr. Witt after discharge. She has been evaluated by physical therapy and occupational therapy. She does not need any physical therapy and is back to her baseline. 2. History of right deep venous thrombosis aware. 3. Fibromyalgia. Continue Tylenol. 4. Hypertension. Continue home medications. 5. Gastroesophageal reflux disease. Continue proton pump inhibitor. 6. Anxiety. Continue Xanax. 7. Right lower extremity chronic weakness. The patient does use a cane at home. She has also had a previous surgery to that foot that she is disabled from. 8. Mild pulmonary hypertension as evidenced on echocardiogram. HOSPITAL COURSE: Briefly, Ms. Jaeger is a 59-year-old female who came to the ED reporting over a week ago while she was vacuuming, she stepped on the cord, jerked it out from underneath her foot and was reporting some ascending numbness that went to the hip and throughout the week continued to climb and was having numbness and tingling all the way up to the midline of her scapula to the right side of the face. On the morning of her admission she woke up and felt she had some face swelling, a droop and some slurred speech as well as some thought process loss. Initial workup with a head CT was negative. They did a CT of the neck did not show anything acute. Echocardiogram showed a normal EF with mild pulmonary hypertension. Follow up with a brain MRI did not show any stroke. She was placed on Plavix. She had an allergy to aspirin. She worked with PT, OT and Speech Therapy. They did not feel that she required any skilled PT intervention in the hospital and that she was back to her baseline and she will be discharged back home today to follow up with her primary care provider. She did report that she has been under some recent stressors with the loss of her mother as well as oncoming holidays. VITAL SIGNS: At time of discharge: Temperature is 98.2 degrees, heart rate 73, respirations 18, blood pressure 129/62, O2 is 96% on room air. FOLLOWUP: Ms. Jaeger is being discharged back home with self care. She is take all medications as prescribed. She can follow up with Dr. Francis Witt, in the next 1 to 2 weeks. She can return to the ED or call 911 for any worsening of symptoms. DISCHARGE MEDICATIONS: 1. Tylenol p.m. 1000 mg p.o. at bedtime. 2. Cardizem CD 200 mg p.o. q. p.m. 3. Celexa 60 mg p.o. q. p.m. 4. Prilosec 40 mg p.o. q.a.m. 5. Culturelle 1 each p.o. daily. 6. Tylenol 1000 mg p.o. q.a.m. 7. Xanax 1 mg p.o. as directed. 8. Plavix 75 mg p.o. daily. Dictated by MARISELA Nelson for Kirby Padron MD cc: MD Francis Cheek MD
== END 2019-09-01 13:25 | disposition home or self-care (01) ==
LOC: P.ED 10:02 → SUATTDRO 10:04 → INTOOBSV 10:04 → P.MEDSURG 12:04
PROVIDERS: ATTEND Internal Medicine